=== PATIENT | male | born 1970 | race American Indian/Alaskan Native ===

== ENCOUNTER 2019-02-01 06:22 | Day surgery (SDC) | payer OTHER ==
[2019-02-01] MEDS ORDERED: ECOTRIN PO ONE (07:17)
[2019-02-01 07:48] LABS: Basophils % (Auto) 0.9 % (0.0-1.8); Eosinophils # (Auto) 0.1 K/mm3 (0.0-0.4); Eosinophils % (Auto) 2.3 % (0.0-4.3); Hematocrit 34.6 % (35.5-45.6); Hemoglobin 11.8 gm/dl (11.8-15.2); Lymphocytes # (Auto) 1.3 K/mm3 (1.2-5.4); Lymphocytes % (Auto) 24.8 % (13.4-35.0); Mean Corpuscular HGB Conc 34 % (32-34); Mean Corpuscular Hemoglobin 33 pg (28-32); Mean Corpuscular Volume 97 fl (84-94); Monocytes # (Auto) 0.6 K/mm3 (0.0-0.8); Monocytes % (Auto) 10.8 % (0.0-7.3); Platelet Count 189 K/mm3 (140-440); Red Blood Count 3.57 M/mm3 (3.65-5.03); Red Cell Distribution Width 14.2 % (13.2-15.2)
[2019-02-01 08:00] LABS: INR 1.07 (0.87-1.13)
[2019-02-01] MEDS ORDERED: NACL 0.9% 500 ML 500 ML IV SCH (08:00)
[2019-02-01 08:01] LABS: Partial Thromboplastin Time 29.8 Sec. (24.2-36.6)
[2019-02-01 08:04] LABS: BUN/Creatinine Ratio 10; Blood Urea Nitrogen 11 mg/dL (9-20); Calcium 8.8 mg/dL (8.4-10.2); Hemolysis Index 6
[2019-02-01] MEDS ORDERED: SUBLIMAZE ONE (09:14)
[2019-02-01] MEDS ORDERED: VERSED ONE (09:14)
[2019-02-01] MEDS ORDERED: HEPARIN 10,000 UNITS/10 ML ONE (09:15)
[2019-02-01] MEDS ORDERED: XYLOCAINE 2% INFILTRATI ONE (09:15)
[2019-02-01] MEDS ORDERED: HEPARIN/NS 5000 UNIT/500ML(CATH LAB) 1,000 ML IR ONE (09:15)
[2019-02-01] MEDS ORDERED: CALAN ONE (09:15)
[2019-02-01] MEDS ORDERED: NITROGLYCERIN SYRINGE 3 ML ONE (09:16)
[2019-02-01] MEDS ORDERED: ATROPINE 0.1% (CARDIAC) ONE (10:02)
--- NOTE | 2019-02-01 10:39 | Discharge Summary ---
Short Stay Discharge Plan Activity: advance as tolerated Weight Bearing Status: Full Weight Bearing Diet: low fat, low cholesterol, low salt Wound: keep clean and dry Special Instructions: no heavy lifting (3 days) Additional Instructions: Outpatient management of nonischemic cardiomyopathy-afterload reduction, betablockers and antiplatelets will be deferred to the primary outpatient water tender. Follow up with: KASSANDRA ANGLIN MD [Primary Care Provider] - 7 Days MATHEW NELSON MD [Staff Physician] - 7 Days
--- NOTE | 2019-02-01 10:53 | Cardiac Catherization Report ---
CARDIAC CATHETERIZATION REPORT REASON FOR PROCEDURE: Chest pain. PROCEDURES: 1. Left heart catheterization. 2. Selective left and right coronary angiography. 3. Left ventricular angiography. 4. Sedation time start 0941, end time 1004. DESCRIPTION OF PROCEDURE: The patient was prepped and draped in a sterile fashion after informed consent. The right radial cath site was prepped and draped after a negative Dion's test. The right radial artery was entered using Seldinger technique, followed by placement of a 6-Khmer hydrophilic sheath. Routine radial cocktail was given via the sheath. Selective left and right coronary angiography was performed. A #4 left Laureano was used for left coronary angiography. A #4 right Laureano was used for right coronary angiography. A pigtail catheter was used for left ventricular angiography. The catheters were removed, sheath removed and hemostasis achieved using manual compression. The patient was returned to the post-procedure unit in stable condition. There were no complications. FINDINGS: HEMODYNAMICS: Left ventricular end-diastolic pressure was 12. Ascending aortic pressure 128/87. There was no significant pressure gradient on pullback across the aortic valve. CORONARY ANGIOGRAPHY: The left main coronary artery was angiographically normal. The left anterior descending artery and its diagonal branches contained mild luminal irregularities. A small to medium size ramus intermedius artery was free of significant disease. The circumflex artery also contained minimal luminal irregularities. The right coronary artery was dominant and similarly free of significant disease. The left ventricle was mildly to moderately dilated. There was moderate to severe left ventricular systolic dysfunction, diffuse hypokinesis, ejection fraction estimated at 30-35%. CONCLUSION: 1. No significant coronary artery disease, essentially angiographically near normal coronary arteries. 2. Dilated nonischemic cardiomyopathy, [id number] left ventricular systolic dysfunction, ejection fraction 30-35%. RECOMMENDATION: Medical therapy and risk factor modification. JOB# [id number] CA/NTS
[2019-02-01] MEDS ORDERED: NACL 0.9% 1000 ML 1,000 ML IV SCH (11:00)
[2019-02-01 14:22] VITALS: BP 112/74
== END 2019-02-01 14:30 | disposition home or self-care (01) ==
LOC: CATHLABREC 06:22
PROVIDERS: ATTEND Internal Medicine Cardiovascular Disease
DX: I42.0 Dilated cardiomyopathy (principal); Z79.82 Long term (current) use of aspirin; Z79.899 Other long term (current) drug therapy; Z98.890 Other specified postprocedural states; Z90.49 Acquired absence of other specified parts of digestive tract; Z72.89 Other problems related to lifestyle; Z86.2 Personal history of diseases of the blood and blood-forming organs and certain disorders involving the immune mechanism
CPT/HCPCS: 36415; 80048; 85025; 85610; 85730; 93005; 93010; 93458; 99156; 99157; C1894; J0461; J1644; J2250; J3010; J7040; Q9967